=== PATIENT | female | born 1995 | race Caucasian/White ===

== ENCOUNTER → 2018-04-13 | Outpatient (REF) | payer OTHER | LOC: M SFHCLERA 14:39 | DX: R35.0 Frequency of micturition (principal) ==

== ENCOUNTER → 2019-04-05 | Outpatient (CLI) | payer OTHER ==
[2019-04-05 12:40] LABS: ALBUMIN 2.6 GM/DL (3.2-5.2); ALT/SGPT 13 U/L (12-78); BILIRUBIN,TOTAL 0.2 MG/DL (0.2-1.0); BLOOD UREA NITROGEN 6 MG/DL (7-18); CALCIUM LEVEL 8.6 MG/DL (8.5-10.1); CARBON DIOXIDE LEVEL 27 MEQ/L (21-32); CHLORIDE LEVEL 107 MEQ/L (98-107); CREATININE FOR GFR 0.59 MG/DL (0.55-1.30); GLOMERULAR FILTRATION RATE > 60.0 (>60); GLUCOSE, FASTING 103 MG/DL (70-100); POTASSIUM SERUM 4.3 MEQ/L (3.5-5.1); SODIUM LEVEL 141 MEQ/L (136-145); TOTAL PROTEIN 6.1 GM/DL (6.4-8.2)
== END ==
LOC: M LAB 11:40
PROVIDERS: ATTEND Obstetrics & Gynecology
DX: Z34.80 Encounter for supervision of other normal pregnancy, unspecified trimester (principal); Z3A.00 Weeks of gestation of pregnancy not specified

== ENCOUNTER 2019-05-09 20:10 | Inpatient (IN) | payer OTHER ==
[2019-05-09] VITALS (15 sets, daily range): BP systolic 91–160; BP diastolic 54–87
[~2019-05-09] VITALS: Ht 144.8 cm; Wt 57.5 kg
[2019-05-09] MEDS ORDERED: LACTATED RINGER'S 1000 ML IV STA (21:35)
[2019-05-09] MEDS ORDERED: LR 1,000 ML IV SCH (21:35)
[2019-05-09] MEDS ORDERED: PENICILLIN G POTASSIUM IV 5 MU in D5W MINI-BAG PLUS 100 ML IV STA (21:35)
[2019-05-09 22:00] LABS: HEMATOCRIT 37.7 % (36.0-47.0); HEMOGLOBIN 12.8 g/dl (12.0-15.5); MEAN CORPUSCULAR HEMOGLOBIN 30.4 pg (27.0-33.0); MEAN CORPUSCULAR VOLUME 89.5 fl (80.0-96.0); PLATELET COUNT, AUTOMATED 195 10^3/uL (150-450); RED BLOOD COUNT 4.21 10^6/uL (4.00-5.40); WHITE BLOOD COUNT 10.2 10^3/uL (4.0-10.0)
[2019-05-09] MEDS ORDERED: FENTANYL 2MCG/ML ROPIVACAINE 0.2% IN 0.9% NACL 100ML IVBAG As Ordered ONE (22:42)
[2019-05-09] MEDS ORDERED: ePHEDrine SULFATE 25 MG/5 ML(5MG/ML) SYRINGE IV PRN (23:45)
[2019-05-09] MEDS ORDERED: REFRIGERATOR IV KEYS XX PRN (23:45)
[2019-05-09] MEDS ORDERED: ONDANSETRON 4MG/2ML VIAL (J2405) IV PRN (23:45)
[2019-05-09] MEDS ORDERED: EPIDURAL/PCA KEYS XX PRN (23:45)
[2019-05-09] MEDS ORDERED: diphenhydrAMINE INJ 50MG/ML VIAL (J1200) IV PRN (23:45)
[2019-05-09] MEDS ORDERED: FENTANYL/ROPIVACAINE/NACL BAG 100 ML EPIDURAL SCH (23:45)
[2019-05-09] MEDS ORDERED: EPIDURAL COMMENT XX SCH (23:45)
[2019-05-09] MEDS ORDERED: LACTATED RINGER'S 1000 ML IV PRN (23:45)
[2019-05-09] MEDS ORDERED: NALOXONE INJ 0.4 MG/1 ML VIAL (J2310) IV PRN (23:45)
[2019-05-09] MEDS ORDERED: PNVTAB4 PO (23:46)
[2019-05-09] MEDS ORDERED: ZANT150T40 PO (23:46)
[2019-05-10] VITALS (22 sets, daily range): BP systolic 110–137; BP diastolic 57–84
[2019-05-10] MEDS ORDERED: PENICILLIN G POTASSIUM IV 2.5 MU in APPROPRIATE DILUENT 1 EA IV SCH (02:00)
[2019-05-10] MEDS ORDERED: OXYTOCIN 30 UNITS IN 0.9% NaCl 500ML IV BAG (J2590) As Ordered ONE (02:30)
[2019-05-10] MEDS ORDERED: OXYTOCIN DRIP 30 UNITS in APPROPRIATE DILUENT 1 EA IV SCH ×2 (03:00→04:36)
[2019-05-10 04:32] LABS: CORD GAS ABE V -2.7; CORD GAS HCO3 V 26.2 MEQ/L; CORD GAS O2 SAT V 38.1 %; CORD GAS PH V 7.243 UNITS; CORD GAS PO2 V 19.6 mmHg; CORD GAS SBC V 20.7 MEQ/L; CORD GAS TCO2 V 28.1 MEQ/L
[2019-05-10 04:33] LABS: CORD GAS ABE A -5.5; CORD GAS HCO3 A 25.5 MEQ/L; CORD GAS PCO2 A 74.5 mmHg; CORD GAS PH A 7.153 UNITS; CORD GAS PO2 A 23.3 mmHg; CORD GAS SBC A 18.5 MEQ/L; CORD GAS TCO2 A 27.8 MEQ/L
[2019-05-10] MEDS ORDERED: MEASLES,MUMPS,RUBELLA VACCINE INJ (MMR-II) (90707) SC SCH (04:45)
[2019-05-10] MEDS ORDERED: RHOGAM 300 MCG (1500 IU) INJ (J2790) IM SCH (04:45)
[2019-05-10] MEDS ORDERED: METHYLERGONOVINE MALEATE 0.2 MG TAB PO PRN (04:45)
[2019-05-10] MEDS ORDERED: IBUPROFEN 600 MG TAB PO PRN (04:45)
[2019-05-10] MEDS ORDERED: DOCUSATE SODIUM 100 MG CAP PO PRN (04:45)
[2019-05-10] MEDS ORDERED: ACETAMINOPHEN TAB 650MG DOSE (2X325MG) PO PRN (04:45)
[2019-05-10] MEDS ORDERED: DIBUCAINE 1% OINTMENT 30GM TOP PRN (04:45)
--- NOTE | 2019-05-10 07:15 | HPE ---
DATE OF ADMISSION: 05/09/2019 HISTORY OF PRESENT ILLNESS: Regina is a 23-year-old female 3, para 1-0-1-1 with an estimated date of confinement (EDC) of May 08, 2019, estimated gestational age (EGA) 40-1/7 weeks gestation who presented to labor and delivery with complaints of contractions every 2-3 minutes. Upon evaluation in labor and delivery she was found to be in active labor and a decision was made for admission. Her record was reviewed. She received care at [place]. Denies any alcohol, drug or cigarette smoking. She does have a history of positive Group B Streptococcus (GBS). Her OB record was reviewed. LABS: Blood type A negative. Rubella immune. Hepatitis negative. HIV negative. GC and chlamydia negative. One hour sugar testing was within normal limits. Her GBS is positive. PAST MEDICAL HISTORY: Significant for asthma. PAST SURGICAL HISTORY: [place] teeth extraction. MEDICATIONS: - vitamin ALLERGIES: SULFA drugs. PHYSICAL EXAMINATION: HEENT: Grossly within normal limits. ABDOMEN: Soft, nontender, nondistended. EXTREMITIES: No clubbing, cyanosis or edema. VAGINAL EXAM: 4 cm dilated, 80% effaced, fetus at -2 station in a vertex position. Tracing reviewed, category 1 tracing. ASSESSMENT: 1. Intrauterine at 40-1/7 weeks of gestation in labor. 2. GBS positive. PLAN: Admit to labor and delivery. Routine labs sent. Pain management discussed. The patient opts for an epidural. Pen G given for GBS prophylaxis. Continue to monitor. Anticipate delivery.
[2019-05-10] MEDS: PRENATAL VITAMINS CHEWABLE TABLET PO SCH (07:57)
[2019-05-10] MEDS: ACETAMINOPHEN 500 MG TAB PO PRN ×2 (15:53→22:21)
[2019-05-10] MEDS: IBUPROFEN 800 MG TAB PO PRN (18:52)
[2019-05-10] MEDS ORDERED: SLF 3 ML SYR IV PRN (19:45)
--- NOTE | 2019-05-10 22:39 | DN ---
DATE: 05/10/2019 Regina is a 23-year-old female, 3, para 1-0-1-1 who was admitted at 40 weeks gestation in labor. She progressed to fully dilated, delivered a live male in right occiput anterior position with a nuchal cord times one, scores 9 and 10. weight 6 pounds 2 ounces. Placenta delivered spontaneously intact. Three-vessel cord. Perineum, vagina and cervix inspected. No lacerations noted. Estimated blood loss 250 mL. Both mother and baby in stable condition.
[2019-05-11 06:20] VITALS: BP 101/64
[2019-05-11] MEDS: PRENATAL VITAMINS CHEWABLE TABLET PO SCH (08:31)
[2019-05-11] MEDS: IBUPROFEN 800 MG TAB PO PRN (08:31)
--- NOTE | 2019-05-11 09:05 | IPN ---
DATE: 05/10/2019 This lady has requested circumcision of their male . After discussing risks, benefits of circumcision, the medical and nonmedical indications, a penile block and aftercare. Expressed understanding of penile block, aftercare and bleeding, signed the consent form. We await clearance by the quill layer. All questions were answered. 20-minute discussion.
[2019-05-11] MEDS ORDERED: ACET-683 PO (09:24)
[2019-05-11] MEDS ORDERED: COLA100C5 PO (09:24)
[2019-05-11] MEDS ORDERED: DIBU10OI TOP (09:24)
[2019-05-11] MEDS ORDERED: IBUP80TA PO (09:24)
--- NOTE | 2019-05-11 19:03 | DSES ---
DATE OF ADMISSION: 05/09/2019 DATE OF DISCHARGE: 05/11/2019 A 23-year-old 3, now para 2 admitted at 40 and 1/7 weeks of gestation with contractions, had a spontaneous vaginal delivery of a live male infant, 6 pounds, 2 ounces. scores of 9 and 10 at one and five minutes respectfully. Cord times one, loose. Arterial pH 7.15, base excess -5.5, venous pH 7.24, base excess -2.70. Her risk factors are she was group B Streptococcus (GBS) positive but treated appropriately. On discharge, we discussed phlebitis, cystitis, mastitis, endometritis and cellulitis, diet, exercise, pain management, perineal, breast and wound care. The patient has been given her medications. She has a followup at [facility] in six weeks. At which time, control will be discussed. Blood pressure on discharge 101/64, respirations 16, pulse 52, temperature is 99.2. Admitting hemoglobin was 12.8, hematocrit 37.7 and platelets are 195. The patient was discharged with instructions.
== END 2019-05-11 12:00 | disposition home or self-care (01) | DRG 807 ==
LOC: M LDO 20:10 → M LDI 21:29 → M OBS 05-10 07:22
PROVIDERS: ADMIT Obstetrics & Gynecology; ATTEND Obstetrics & Gynecology
PROC: 10E0XZZ Delivery of Products of Conception, External Approach (ICD-10-PCS; principal; 2019-05-10)
DX: O48.0 Post-term pregnancy (principal); Z37.0 Single live birth; Z3A.40 40 weeks gestation of pregnancy; O99.824 Streptococcus B carrier state complicating childbirth; O69.81X0 Labor and delivery complicated by cord around neck, without compression, not applicable or unspecified

== ENCOUNTER → 2019-09-13 | Outpatient (CLI) | payer OTHER ==
[~2019-09-13] MED LIST: ACET-683 PO; COLA100C5 PO; DIBU10OI TOP; IBUP80TA PO; PNVTAB4 PO; ZANT150T40 PO
--- NOTE | 2019-09-13 18:46 | REP ---
Left great toe series: Four views. History: Rule out fracture. Findings: Four views of the left great toe demonstrate no evidence of fracture or subluxation. No opaque foreign body seen. Impression: No fracture noted. Electronically Signed by Marbin Wilson MD 09/14/2019 03:24 P
== END ==
LOC: M LRY 16:30
PROVIDERS: ATTEND Physician Assistant
DX: S99.922A Unspecified injury of left foot, initial encounter (principal); X58.XXXA Exposure to other specified factors, initial encounter; Y92.89 Other specified places as the place of occurrence of the external cause
CPT/HCPCS: 73660; G0463

== ENCOUNTER → 2019-10-27 | Outpatient (CLI) | payer OTHER ==
--- NOTE | 2019-10-28 13:48 | REP ---
Radionuclide thyroid scan and uptake: The study is performed with 386 microcuries of I-123. The thyroid right lobe measures 4.7 cm craniocaudad and the left lobe measures 4.2 cm craniocaudad. The thyroid is upper normal size. There is uniform radiotracer distribution throughout both right lobes. There are no focal hot spots. Uptake: The 24 our uptake is markedly elevated measuring 77.77%. Normal 24 our uptake is 25% - 35%. Impression: Markedly elevated thyroid uptake. Radiotracer distribution is uniform throughout both right and left lobes Electronically Signed by Juan Bella MD 10/28/2019 01:39 P
== END ==
LOC: M RAD 12:30
PROVIDERS: ATTEND Internal Medicine
DX: E05.00 Thyrotoxicosis with diffuse goiter without thyrotoxic crisis or storm (principal)
CPT/HCPCS: 78012; A9516